=== PATIENT | female | born 1935 | race Caucasian/White ===

== ENCOUNTER 2016-11-09 16:08 | Emergency (ER) | payer OTHER ==
--- NOTE | 2016-11-09 16:51 | ED EKG INTERP ---
EKG Interpretation - EKG Time of EKG reading by physician:: 16:35 EKG Read and Signed by:: Rika Salas EKG Interpretation (*Must complete 3 of following elements*): Normal Rate: 59 Rhythm: sinus bradycardia Attestation - Scribe Verification/Attestation Scribe:: Deirdre Merchant Acting as Scribe for:: Rika Salas Scribe documention review:: This chart was documented by a scribe and accurately reflects the service the provider performed and the decisions made by the provider.
[2016-11-09 16:54] LABS: URINE CULTURE NEEDED? NO; URINE MICRO REVIEW NEEDED? NO; URINE SOURCE CLEAN CATCH
[2016-11-09 16:58] LABS: BILIRUBIN URINE NEGATIVE (NEGATIVE); BLOOD URINE NEGATIVE (NEGATIVE); COLOR YELLOW; GLUCOSE URINE NEGATIVE (NEGATIVE); LEUKOCYTES URINE NEGATIVE (NEGATIVE); NITRITE URINE NEGATIVE (NEGATIVE); PH URINE 6.5; PROTEIN URINE TRACE mg/dL (NEGATIVE); SP GRAVITY URINE 1.023; TURBIDITY URINE CLEAR (CLEAR); UROBILINOGEN URINE NORMAL (NORMAL)
[2016-11-09 16:58] LABS: MANUAL DIFF NEEDED? NO
[2016-11-09 16:59] LABS: UR EPITHELIAL CELLS <10 /HPF (<10); URINE BACTERIA NEGATIVE /HPF; URINE RBC <10 /HPF (<10); URINE WBC <10 /HPF (<10)
[2016-11-09 17:01] LABS: BASO% 0.2 % (0.0-0.8); EOS# 0.15 X1000 (0.0-0.7); EOS% 2.7 % (0.0-10.0); HEMATOCRIT 32.2 % (37.0-47.0); HEMOGLOBIN 9.9 g/dL (12.0-16.0); LYMPH# 1.66 X1000 (1.2-3.4); LYMPH% 29.5 % (20.5-51.1); MCH 28.4 PG (27-31); MCHC 30.7 g/dL (33-37); MCV 92.3 FL (81-99); MONO# 0.25 X1000 (0.11-0.59); MONO% 4.4 % (1.7-9.3); MPV 11.3 FL (7.4-10.4); NEUT% 63.2 % (42.2-75.2); PLT 158 X1000 (130-400); RBC 3.49 XMIL (4.2-5.4)
[2016-11-09 17:14] LABS: UR AMPHETAMINES QUAL NONE DETECTED (NONE DETECT); UR BARBITUATES QUAL NONE DETECTED (NONE DETECT); UR BENZODIAZEPIN QUAL NONE DETECTED (NONE DETECT); UR CANNABINOIDS QUAL NONE DETECTED (NONE DETECT); UR COCAINE QUAL NONE DETECTED (NONE DETECT); UR METHADONE QUAL NONE DETECTED (NONE DETECT); UR OPIATES QUAL NONE DETECTED (NONE DETECT); UR OXYCODONE QUAL PRESUMPTIVE POSITIVE (NONE DETECT); UR PCP QUAL NONE DETECTED (NONE DETECT)
[2016-11-09 17:28] LABS: ALBUMIN 3.7 g/dL (3.5-5.0); CALCIUM 9.1 mg/dL (8.8-10.2); POTASSIUM 3.8 mmol/L (3.5-5.1); TOTAL BILIRUBIN 0.33 mg/dL (0.20-1.00)
--- NOTE | 2016-11-09 17:39 | PROVIDER DOCUMENTATION ---
HPI-Psychological Disorder - General Source: patient - History of Present Illness-Psych Onset/Duration: reports: just prior to arrival Timing: reports: still present Severity: reports: mild Situational problems related to:: reports: N/A Psychiatric Complaints: reports: angry, agitated, hostile Substance Use: reports: none/never Previous psych related hospitalizations?: Yes Similar Symptoms Previously?: No Recently seen or treated by another doctor?: No <Deirdre Merchant - Last Filed: 11/09/16 17:52> <Tanvir Bay - Last Filed: 11/09/16 18:23> <Cory Yang - Last Filed: 11/09/16 20:59> - General Chief Complaint: Psych Stated Complaint: CLEARENCE FOR DOLORES CUNHA Time Seen by Provider: 11/09/16 17:05 Allergies/Adverse Reactions: Patient Allergies Allergy/AdvReac Type Severity Reaction Status Date / Time Sulfa (Sulfonamide Allergy Intermediate Unknown Verified 08/28/16 19:09 Antibiotics) isosorbide dinitrate * Allergy Unknown Verified 08/29/16 13:22 [From Isordil] Penicillins Allergy Unknown Verified 08/29/16 13:22 codeine AdvReac Unknown Verified 08/28/16 20:53 Home Medications: ATORVAstatin [Lipitor] 20 mg PO QHS 08/28/16 Aspirin EC 81 mg PO QAM 08/28/16 Atenolol 25 mg PO QAM 08/28/16 Bisacodyl [Dulcolax] 10 mg [place] DAILY PRN PRN 08/28/16 Dextran 70/Hypromellose [Artificial Tears] 1 each OP PRN PRN 08/28/16 Famotidine [Pepcid] 40 mg PO HS 08/28/16 Furosemide [Lasix] 20 mg PO DAILY PRN 08/28/16 Linaclotide [Linzess] 290 mcg PO QAM 08/28/16 Magnesium Hydroxide [Milk of Magnesia] 30 ml PO DAILY PRN 08/28/16 Ondansetron HCl [Zofran] 4 mg PO Q6H PRN PRN 08/28/16 Spironolactone 12.5 mg PO QAM 08/28/16 Sucralfate [Carafate Liquid] 1 gm PO QAM 08/28/16 Tizanidine HCl [Zanaflex] 2 mg PO Q6H PRN PRN 08/28/16 - History of Present Illness-Psych Nature of Presenting Problem: Pt is a 81 yof who came to the ED with a cc of being combative. (Deirdre Merchant) Review of Systems - Adult - REVIEW OF SYSTEMS - ADULT Constitutional: denies: chills, fever Eyes: denies: blurred vision, double vision Ears, Nose, Mouth & Throat: denies: sinus problem, mouth/dental pain Cardiovascular: denies: orthopnea, poor circulation Respiratory: denies: hemoptysis, shortness of breath Gastrointestinal: reports: no symptoms reported Genitourinary: reports: no symptoms reported Musculoskeletal: denies: joint pain, muscle weakness Integumentary: reports: no symptoms reported Neurological: reports: no symptoms reported Psychiatric: reports: see HPI. denies: insomnia, suicidal thoughts Endocrine: reports: no symptoms reported Hematologic/Lymphatic: reports: no symptoms reported Allergic/Immunologic: reports: no symptoms reported All Other Systems: Reviewed and Negative <Deirdre Merchant - Last Filed: 11/09/16 17:52> Past History - Adult - PAST MEDICAL HISTORY-ADULT Review of Records: reports: Old Records Reviewed, Nursing Assessment Review Major Childhood Illnesses: reports: denies history Cardiovascular: reports: HTN, hyperlipidemia Respiratory: reports: denies history Gastrointestinal: reports: GERD Obstetrical/Gynecological: reports: denies history Genitourinary: reports: denies history Musculoskeletal: reports: denies history Neurological: reports: dementia Endocrine/Immune: reports: denies history Other Conditions: reports: denies history - IMMUNIZATION STATUS Childhood Immunizations: See Nurse Assessment Flu Vaccine: See Nurse Assessment - FAMILY HISTORY Family History: reviewed, not pertinent <Deirdre Merchant - Last Filed: 11/09/16 17:52> Physical Exam-Psych Focus - Physical Exam-Psych Appearance: appropriate appearance, appropriate insight, neat, no memory impairment, denies illness Neurological: alert, normal mood/affect, calm, candle pourer II-XII nml as tested, oriented x 3, responds to pain Behavior/Eye Contact/Speech: cooperative, good eye contact, normal speech Thoughts/Hallucinations: normal thought pattern, no apparent hallucination HENMT: normocephalic/atraumatic, normal ENT inspection, TMs normal, pharynx normal Neck: non-tender, full range of motion, supple, normal inspection Respiratory: chest non-tender, lungs clear, normal breath sounds, no pleuratic chest pain, no respiratory distress, no accessory muscle use Cardiovascular: normal peripheral pulses, regular rate, rhythm, no edema, no gallop, no JVD, no murmur Abdominal Exam: normal bowel sounds, non tender, soft, no organomegaly, no pulsatile mass Lymphatic: no adenopathy Back Exam: normal inspection, no CVA tenderness, no vertebral tenderness Extremity: normal range of motion, non-tender, normal gait, normal inspection, no pedal edema, no calf tenderness, normal capillary refill, pelvis stable Integumentary: normal color, normal turgor, warm/dry <Deirdre Merchant - Last Filed: 11/09/16 17:52> Progress - CHANGE OF SHIFT REPORT (ED Provider) Report Given and Care Transferred to:: Dr. Yang Time of Transfer: 17:53 <Deirdre Merchant - Last Filed: 11/09/16 17:52> - CHANGE OF SHIFT REPORT (ED Provider) Report Given and Care Transferred to:: Dr. Yang Time of Transfer: 18:00 <Tanvir Bay - Last Filed: 11/09/16 18:23> - CT/MRI 1 CT Study: Head (NAD) <Cory Yang - Last Filed: 11/09/16 20:59> - PLAN OF CARE/RESULTS Progress/Plan/Lab Results: Vital Signs - 24 hr 11/09/16 16:10 Temperature 98.3 F Pulse Rate 62 Respiratory 20 Rate Blood Pressure 138/109 O2 Sat by Pulse 99 Oximetry Orders Category Date Time Status ACETAMINOPHEN [TDM] Stat Lab 11/09/16 16:50 Received ALCOHOL BLOOD Stat Lab 11/09/16 16:50 Completed CBC WITH ELECTRONIC DIFF [HEME] Stat Lab 11/09/16 16:50 Completed COMPREHENSIVE METABOLIC PANEL [CHEM] Stat Lab 11/09/16 16:50 Completed FREE T4 Stat Lab 11/09/16 16:50 Received SALICYLATES [TDM] Stat Lab 11/09/16 16:50 Received TROPONIN T Stat Lab 11/09/16 16:50 Received TSH Stat Lab 11/09/16 16:50 Received URINALYSIS W/POSS RFLX CULT [URINALYSIS] Stat Lab 11/09/16 16:38 Completed URINE DRUG SCREEN Stat Lab 11/09/16 16:38 Completed VITAMIN B12 Stat Lab 11/09/16 16:50 Received EKG [EKG] Stat Ther 11/09/16 16:25 Ordered Laboratory Tests 11/09/16 11/09/16 11/09/16 16:38 16:38 16:50 WBC RBC Hgb Hct MCV MCH MCHC RDW Std Deviation Plt Count MPV Immature Gran % (Auto) Neut % (Auto) Lymph % (Auto) Boyd % (Auto) Eos % (Auto) Baso % (Auto) Immature Gran # (Auto) Neut # (Auto) Lymph # (Auto) Boyd # (Auto) Eos # (Auto) Baso # (Auto) Sodium Potassium Chloride Carbon Dioxide Anion Gap BUN Creatinine Estimated GFR/1.73 m2 BUN/Creatinine Ratio Glucose Calculated Osmolality Calcium Total Bilirubin AST ALT Alkaline Phosphatase Total Protein Albumin Globulin Albumin/Globulin Ratio Urine Source CLEAN CATCH Urine Color YELLOW Urine Turbidity CLEAR Urine pH 6.5 Ur Specific Blanco 1.023 Urine Protein TRACE A Ur Glucose (Stick) NEGATIVE Ur Ketones (Stick) TRACE A Urine Blood NEGATIVE Urine Nitrite NEGATIVE Urine Bilirubin NEGATIVE Urobilinogen Dipstick NORMAL Urine Leukocytes NEGATIVE Urine WBC (Auto) <10 Urine RBC (Auto) <10 U Epithel Cells (Auto) <10 Urine Bacteria (Auto) NEGATIVE Urine Opiates Screen NONE DETECTED Ur Oxycodone Screen PRESUMPTIVE POSITIVE A Ur Methadone, Qual NONE DETECTED Ur Barbiturates Screen NONE DETECTED Ur Phencyclidine Scrn NONE DETECTED Ur Amphetamines Screen NONE DETECTED U Benzodiazepines Scrn NONE DETECTED Urine Cocaine Screen NONE DETECTED U Cannabinoids Screen NONE DETECTED Plasma/Serum Ethyl Alc 11/09/16 11/09/16 16:50 16:50 WBC 5.62 RBC 3.49 L Hgb 9.9 L Hct 32.2 L MCV 92.3 MCH 28.4 MCHC 30.7 L RDW Std Deviation 15.4 H Plt Count 158 MPV 11.3 H Immature Gran % (Auto) 0.0 Neut % (Auto) 63.2 Lymph % (Auto) 29.5 Boyd % (Auto) 4.4 Eos % (Auto) 2.7 Baso % (Auto) 0.2 Immature Gran # (Auto) 0.00 Neut # (Auto) 3.55 Lymph # (Auto) 1.66 Boyd # (Auto) 0.25 Eos # (Auto) 0.15 Baso # (Auto) 0.01 Sodium 137 Potassium 3.8 Chloride 103 Carbon Dioxide 22 L Anion Gap 12 BUN 16 Creatinine 0.9 Estimated GFR/1.73 m2 60 BUN/Creatinine Ratio 18 Glucose 80 Calculated Osmolality 274 Calcium 9.1 Total Bilirubin 0.33 AST 20 ALT 11 Alkaline Phosphatase 69 Total Protein 7.0 Albumin 3.7 Globulin 3.3 Albumin/Globulin Ratio 1.1 Urine Source Urine Color Urine Turbidity Urine pH Ur Specific Blanco Urine Protein Ur Glucose (Stick) Ur Ketones (Stick) Urine Blood Urine Nitrite Urine Bilirubin Urobilinogen Dipstick Urine Leukocytes Urine WBC (Auto) Urine RBC (Auto) U Epithel Cells (Auto) Urine Bacteria (Auto) Urine Opiates Screen Ur Oxycodone Screen Ur Methadone, Qual Ur Barbiturates Screen Ur Phencyclidine Scrn Ur Amphetamines Screen U Benzodiazepines Scrn Urine Cocaine Screen U Cannabinoids Screen Plasma/Serum Ethyl Alc (Deirdre Merchant) Departure <Deirdre Merchant - Last Filed: 11/09/16 17:52> <Tanvir Bay - Last Filed: 11/09/16 18:23> - Departure Time of Disposition Order: 21:00 Certified Medical Emergency: Emergent <Cory Yang - Last Filed: 11/09/16 20:59> - Departure DIAGNOSIS: Dementia with behavioral disturbance Qualifiers: Dementia type: unspecified type Qualified Code(s): F03.91 - Unspecified dementia with behavioral disturbance Disposition: [facility] 02 Condition: Stable Referrals: None,PCP [Primary Care Provider] - Attestation - Scribe Verification/Attestation Scribe:: Deirdre Merchant Acting as Scribe for:: Rika Salas Scribe documention review:: This chart was documented by a scribe and accurately reflects the service the provider performed and the decisions made by the provider. <Deirdre Merchant - Last Filed: 11/09/16 17:52> - Scribe Verification/Attestation #2 Shift Change Time: 18:00 Scribe Name: Tanvir Bay Acting as Scribe for:: Cory Yang <Tanvir Bay - Last Filed: 11/09/16 18:23> Physician Attestation
[2016-11-09 17:45] LABS: FREE T4 0.94 ng/dL (0.93-1.70)
[2016-11-09 17:47] LABS: ACETAMINOPHEN < 1.2 ug/mL (10-30)
--- NOTE | 2016-11-09 21:26 | Diag Imaging Result Document ---
PROCEDURE NAME: HEAD W/O CONTRAST - 11/09/2016 CT HEAD WITHOUT CONTRAST: COMPARISON: 08/28/2016. FINDINGS: There is extensive low attenuation in the periventricular and subcortical white matter that is stable consistent with advanced microangiopathy. There is no definite acute infarct given the limited sensitivity of CT versus MRI. There is no discrete intracranial mass, mass effect, or intracranial hemorrhage. There is stable brain atrophy. There is right maxillary and right frontal sinus disease. Surrounding soft tissues are essentially unremarkable. Calvaria is intact. IMPRESSION: 1. Extensive chronic changes that are stable. No definite acute intracranial pathology. 2. Right maxillary and right frontal sinus disease.
[2016-11-09 21:31] VITALS: BP 159/70
--- NOTE | 2016-11-09 21:35 | Diag Imaging Result Document ---
PROCEDURE NAME: CHEST-2 VIEWS - 11/09/2016 PA AND LATERAL RADIOGRAPH OF THE CHEST: COMPARISON: 08/28/2016. FINDINGS: There is a small left pleural effusion with left basilar atelectasis and/or infiltrate. There are increased interstitial markings bilaterally that are approximately stable likely representing chronic interstitial thickening. Superimposed mild edema is possible. Cardiac silhouette appears somewhat prominent. IMPRESSION: Development of a small left effusion with left basilar atelectasis and interstitial thickening that is approximately stable.
== END 2016-11-09 21:31 ==
LOC: EDUNIT# → ED 16:08
DX: F03.91 Unspecified dementia, unspecified severity, with behavioral disturbance (principal); R45.4 Irritability and anger; R45.1 Restlessness and agitation; R45.5 Hostility; J32.0 Chronic maxillary sinusitis; J32.1 Chronic frontal sinusitis; I10 Essential (primary) hypertension; E78.5 Hyperlipidemia, unspecified; Z79.899 Other long term (current) drug therapy; K21.9 Gastro-esophageal reflux disease without esophagitis; Z79.82 Long term (current) use of aspirin
CPT/HCPCS: 36415; 70450; 71020; 80053; 81001; 82140; 82607; 83735; 84439; 84443; 84484; 85025; 93005; G0480